=== PATIENT | male | born 1960 | race Two or more races ===

== ENCOUNTER 2016-10-03 17:09 | Emergency (ER) | payer OTHER ==
[2016-10-03 17:16] VITALS: BP 146/100; PULSE 99; TEMP 98; BMI 35.9
[2016-10-03] MEDS ORDERED: IBUPROFEN 400 MG TABLET (FP) PO ONE ×2 (18:37→18:40)
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
== END 2016-10-03 18:46 | disposition home or self-care (01) ==
LOC: JERFT 17:09
DX: M54.5 Low back pain (principal); V43.52XA Car driver injured in collision with other type car in traffic accident, initial encounter; Y92.414 Local residential or business street as the place of occurrence of the external cause; Y93.89 Activity, other specified; Y99.8 Other external cause status
CPT/HCPCS: 99281-25

== ENCOUNTER 2019-01-04 18:34 | Emergency (ER) | payer OTHER ==
[2019-01-04 18:50] VITALS: BP 170/92; PULSE 91; TEMP 98.6; BMI 38.0
--- NOTE | 2019-01-04 19:55 | PDOC ---
History of Present Illness - General Chief Complaint: Pain Stated Complaint: PAIN Time Seen by Provider: 01/04/19 19:45 History Source: Patient Exam Limitations: No Limitations - History of Present Illness Initial Comments: 01/04/19 19:49 HISTORY OF PRESENT ILLNESS: This a 58-year-old male complaints of acute on chronic right knee and hip pain which he follows up with pain management. 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 Reports has an appointment on 01/08 with his painting trades worker and is asking for refill of meloxicam until he can be evaluated. No recent travel or sick contacts. PAST MEDICAL HISTORY: chronic right lower extremity pain SURGICAL HISTORY: Denies ALLERGIES: No known drug allergies REVIEW OF SYSTEMS General/Constitutional: Denies fever or chills. Denies weakness, weight change. HEENT: Denies change in vision. Denies ear pain or discharge. Denies sore throat. Cardiovascular: Denies chest pain or shortness of breath. Respiratory: Denies cough, wheezing, or hemoptysis. Gastrointestinal: Denies nausea, vomiting, diarrhea or constipation. Denies rectal bleeding. Genitourinary: Denies dysuria, frequency, or change in urination. Musculoskeletal: see HPI Skin and breasts: Denies rash or easy bruising. Neurologic: Denies headache, vertigo, loss of consciousness, or loss of sensation. Psychiatric: Denies depression or anxiety. Endocrine: Denies increased thirst. Denies abnormal weight change. Hematologic/Lymphatic: Denies anemia, easy bleeding, or history of blood clots. Allergic/Immunologic: Denies hives or skin allergy. Denies latex allergy. PHYSICAL EXAM General Appearance: Well-appearing, appropriately dressed. No apparent distress , no intoxication. Musculoskeletal/Extremities: Normal inspection. FROM of all extremities, normal capillary refill. Pelvis Stable. No CVA tenderness. No tenderness to extremities, pedal edema, swelling, erythema or deformity. No bony deformities noted. Pain worsens with flexion of the right knee and right hip. Neurologic: pharmacologist II-XII intact. Fully oriented, alert. Appropriate mood/affect. Motor strength 5/5. No appreciable EOM palsy, facial droop or sensory deficit. 01/04/19 19:51 Past History - Past Medical History Allergies/Adverse Reactions: Allergies Allergy/AdvReac Type Severity Reaction Status Date / Time No Known Allergies Allergy Verified 01/04/19 18:47 Home Medications: Ambulatory Orders Meloxicam 15 mg PO DAILY #10 tablet 01/04/19 Cardiac Disorders: Yes COPD: No Diabetes: Yes - Immunization History Immunization Up to Date: Yes - Suicide/Smoking/Psychosocial Hx Smoking History: Never smoked Have you smoked in the past 12 months: No Hx Alcohol Use: No Drug/Substance Use Hx: No Substance Use Type: None *Physical Exam - Vital Signs Last Vital Signs Temp Pulse Resp BP Pulse Ox 98.6 F 91 H 17 170/92 96 01/04/19 18:47 01/04/19 18:47 01/04/19 18:47 01/04/19 18:47 01/04/19 18:47 Medical Decision Making - Medical Decision Making 01/04/19 19:52 A/P: 58-year-old male for refill of meloxicam [facility] [address] [employer] was contacted and patient was taken meloxicam 15 mg orally every day. Toradol 60 mg IM now Discharge home with prescription for meloxicam *DC/Admit/Observation/Transfer Diagnosis at time of Disposition: Prescription refill - Discharge Dispostion Disposition: HOME Condition at time of disposition: Stable Decision to Admit order: No - Prescriptions Prescriptions: Meloxicam 15 mg PO DAILY #10 tablet - Referrals Referrals: Elda Saucedo [Primary Care Provider] - - Patient Instructions Additional Instructions: Follow-up with pain management as previously scheduled. Return to emergency department for any concerns. Thank you very much for choosing us to provide your emergent health care needs. - Post Discharge Activity
== END 2019-01-04 20:12 | disposition home or self-care (01) ==
LOC: JERFT 18:34
DX: M25.561 Pain in right knee (principal); G89.29 Other chronic pain
CPT/HCPCS: 99281-25

== ENCOUNTER 2024-08-03 18:58 | Emergency (ER) | payer OTHER ==
[2024-08-03 19:06] VITALS: BMI 37.8
[2024-08-03] MEDS ORDERED: ACETAMINOPHEN INJECTION 100 ML ONE (20:24)
[2024-08-03] MEDS: ACETAMINOPHEN 1000 MG/100 ML BAG IVPB ONE (20:49)
[2024-08-03 21:01] LABS: BASO % 0.7 % (0-2.0); EOS % 0.2 % (0-4.5); HEMATOCRIT 44.1 % (35.4-49); HEMOGLOBIN 14.9 GM/dL (11.7-16.9); LYMPH % 10.8 % (8-40); MCH 27.6 pg (25.7-33.7); MCHC 33.7 g/dl (32.0-35.9); MEAN CELL VOLUME 81.9 fl (80-96); MEAN PLT VOLUME 10.6 fl (7.5-11.1); MONO % 8.1 % (3.8-10.2); NEUT % 80.2 % (42.8-82.8); PLATELET COUNT 203 10^3/uL (134-434); RBC 5.39 M/mm3 (4.00-5.60); RDW 13.5 % (11.9-15.9); WHITE BLOOD COUNT 6.5 K/mm3 (4.0-10.0)
[2024-08-03 21:02] LABS: INR 1.08 (0.83-1.09); PROTHROMBIN TIME (PATIENT) 12.2 SEC (9.7-13.0)
[2024-08-03 21:17] LABS: POTASSIUM 3.8 mmol/L (3.5-5.1)
[2024-08-03 21:19] LABS: CALCIUM 9.4 mg/dL (8.5-10.1)
[2024-08-03 21:20] LABS: BLOOD UREA NITROGEN 22.5 mg/dL (7-18)
[2024-08-03 21:23] LABS: CREATININE 1.5 mg/dL (0.55-1.3)
[2024-08-03 21:24] LABS: BILIRUBIN,TOTAL 1.1 mg/dL (0.2-1)
[2024-08-03 21:25] LABS: TOT PROT 7.6 g/dl (6.4-8.2)
[2024-08-03] MEDS ORDERED: metFORMIN HCL 500 MG TABLET (FP) ONE (21:56)
[2024-08-03] MEDS ORDERED: LOSARTAN POTASSIUM 50 MG TABLET ONE (21:56)
[2024-08-03] MEDS: metFORMIN HCL 500 MG TABLET (FP) PO ONE (22:02)
[2024-08-03] MEDS: LOSARTAN POTASSIUM 50 MG TABLET PO ONE (22:02)
[2024-08-03 22:20] LABS: EPI CELLS 4 /uL (0-25.1); HYALINE CASTS 2 /uL (0-3.1); PH,URINE 5.5 (5.0-8.0); URINE APPEARANCE CLEAR; URINE BACTERIA 5 /uL (0-1359); URINE BILIRUBIN NEGATIVE (NEGATIVE); URINE COLOR YELLOW; URINE GLUCOSE (UA) 3+ (NEGATIVE); URINE KETONE TRACE (NEGATIVE); URINE LEUK ESTERASE NEGATIVE (NEGATIVE); URINE NITRITE NEGATIVE (NEGATIVE); URINE PROTEIN 3+ (NEGATIVE); URINE RBC 31 /uL (0-23.9); URINE UROBILINOGEN 0.2 mg/dL (0.2-1.0); URINE WBC 11 /uL (0-25.8)
[2024-08-03 23:38] VITALS: BP 129/69; PULSE 74; RESP 18; TEMP 98.5
[2024-08-04] MEDS ORDERED: LOSARTAN POTASSIUM 50 MG TABLET PO ONE ×2 (21:21→22:03)
== END 2024-08-03 23:38 | disposition home or self-care (01) ==
LOC: JER 18:58
PROC: 3E033NZ Introduction of Analgesics, Hypnotics, Sedatives into Peripheral Vein, Percutaneous Approach (ICD-10-PCS; principal; 2024-08-03)
DX: I10 Essential (primary) hypertension (principal); R53.81 Other malaise; R51.9 Headache, unspecified; R68.83 Chills (without fever); R11.0 Nausea; R35.0 Frequency of micturition
CPT/HCPCS: 36415; 71046-TC-FY; 80053; 81003; 82550; 82553; 84484; 85025; 85610; 87086; 93005; 93010; 99285-25; J0131